=== PATIENT | female | born 1990 | race African-American/Black ===

== ENCOUNTER 2018-04-26 23:34 | Emergency (ER) | payer MEDICAID | END 2018-04-27 01:46 | disposition left against medical advice (07) | LOC: ER 23:34 | DX: R07.89 Other chest pain (principal); R06.02 Shortness of breath; Z53.21 Procedure and treatment not carried out due to patient leaving prior to being seen by health care provider ==

== ENCOUNTER 2018-11-28 00:59 | Emergency (ER) | payer MEDICAID, OTHER ==
[~2018-11-28] VITALS: Ht 175.3 cm; Wt 100.5 kg
[2018-11-28] MEDS ORDERED: ACETAMINOPHEN 325MG TABLET PO ONE (05:00)
[2018-11-28 05:35] VITALS: BP 104/56
== END 2018-11-28 05:43 | disposition home or self-care (01) ==
LOC: ER 00:59
DX: M54.2 Cervicalgia (principal); Z90.89 Acquired absence of other organs
CPT/HCPCS: 99283; Z7610

== ENCOUNTER 2022-08-28 16:31 | Emergency (ER) | payer OTHER ==
[~2022-08-28] VITALS: Ht 167.6 cm; Wt 75.0 kg
[2022-08-28 16:39] VITALS: BP 127/86
[2022-08-28] MEDS ORDERED: METR375C7 MT (16:59)
== END 2022-08-28 23:25 | disposition left against medical advice (07) ==
LOC: ER 16:31
DX: Z53.21 Procedure and treatment not carried out due to patient leaving prior to being seen by health care provider (principal)